=== PATIENT | male | born 1970 | race Caucasian/White ===

== ENCOUNTER 2018-06-26 06:38 | Day surgery (SDC) | payer MEDICAID ==
[2018-06-24 11:37] VITALS: BMI 24.4
[~2018-06-26 06:38] MED LIST: HYDROmorphone 0.5 MG/0.5 ML SYRINGE IVP PRN; LACTATED RINGERS 1,000 ML IV SCH; LIDOCAINE 1% 20 ML VIAL (10MG/ML) FOR IV START INTRADERMA PRN; Pre Op ABX Message 1 EACH MISC MISCELLANE ONE
[2018-06-26] MEDS ORDERED: LACTATED RINGERS 1,000 ML IV ONE (07:03)
[2018-06-26 07:10] VITALS: TEMP 98.1
[2018-06-26] MEDS ORDERED: LIDOCAINE 1% INJ 10MG/ML (20 ML MDV) ONE (07:33)
[2018-06-26] MEDS ORDERED: fentaNYL (PF) 50 MCG/ML 2 ML AMP ONE (07:33)
[2018-06-26] MEDS ORDERED: PROPOFOL 10 MG/ML 20 ML VIAL IV ONE (07:33)
[2018-06-26] MEDS ORDERED: MIDAZOLAM 2 MG/2 ML VIAL ONE (07:33)
--- NOTE | 2018-06-26 08:01 | P.OP ---
Date of Procedure: 06/26/18 Preoperative Diagnosis: Screening colonoscopy Postoperative Diagnosis: No abnormalities Procedure(s) Performed: Colonoscopy Anesthesia: MAC Surgeon: Hardeep Rizvi Condition: stable Disposition: PACU Description of Procedure: Patient is brought to the Endo suite placed in left lateral decubitus position underwent sedation per department of anesthesia. Rectal exam performed no abnormalities noted scope was passed from the rectum to the cecum with the slowly withdrawn make sure to visualize all prado of the colon on the way out no abnormalities were noted scope was retroflexed in the rectum no abnormalities are noted patient artery procedure well no apparent complications we'll plan for repeat colonoscopy in 10 years
[2018-06-26 08:16] VITALS: RESP 16
[2018-06-26 08:37] VITALS: BP 118/71; PULSE 53
== END 2018-06-26 08:52 | disposition home or self-care (01) ==
LOC: ORWHC2ENDO 06:38
PROVIDERS: ATTEND Student in an Organized Health Care Education/Training Program
DX: Z12.11 Encounter for screening for malignant neoplasm of colon (principal); Z87.19 Personal history of other diseases of the digestive system; G43.909 Migraine, unspecified, not intractable, without status migrainosus; Z91.09 Other allergy status, other than to drugs and biological substances
CPT/HCPCS: J2250; J2001; J3010; J2704; G0121

== ENCOUNTER → 2019-09-11 | Outpatient (CLI) | payer MEDICAID ==
--- NOTE | 2019-09-11 10:00 | XR ---
Abdomen HISTORY: Pain Frontal view of the abdomen on 2 images, no comparisons There is a calcification over the lower pole the left kidney measuring only 3 mm in greatest dimensio n. There is a sclerotic density seen over the right sacrum measuring 12 mm. Abnormal vascular calcifi cations are noted within the pelvis. Sclerotic densities present over the right iliac wing measuring 2 cm. Lung bases are clear. There is no evident pneumoperitoneum or bowel obstruction. IMPRESSION: Left nephrolithiasis. Indeterminate densities over the right sacrum, ilium.
--- NOTE | 2019-09-11 10:01 | US ---
EXAMINATION TYPE: US abdomen complete DATE OF EXAM: 09/11/2019 COMPARISON: NONE CLINICAL HISTORY: R10.84 Abd pain. EXAM MEASUREMENTS: Liver Length: 12.8 cm Gallbladder Wall: 0.6 cm CBD: obscured by overlying bowel gas Spleen: 10.9 cm Right Kidney: 10.5 x 5.5 x 5.0 cm Left Kidney: 11.0 x 5.1 x 5.0 cm Severe overlying bowel with tight intercostal spaces. Technically difficult very limited study. Pancreas: Obscured by bowel gas Liver: portions visualized wnl, very limited visualization Gallbladder: limited views, wall appears thickened Evidence for sonographic Dickerson's sign: no CBD: Obscured by overlying bowel gas Spleen: Obscured by overlying bowel gas Right Kidney: wnl Left Kidney: wnl Upper IVC: wnl Abd Aorta: wnl IMPRESSION: 1. Limited due to bowel gas. 2. No ultrasound abnormalities within the abdomen as visualized.
== END | disposition home or self-care (01) ==
LOC: RADUSWWP 08:15
PROVIDERS: ATTEND Family Medicine
DX: N20.0 Calculus of kidney (principal); R10.84 Generalized abdominal pain
CPT/HCPCS: 74018; 76700

== ENCOUNTER 2022-10-26 00:55 | Emergency (ER) | payer BC, MEDICAID ==
[2022-10-26 01:00] VITALS: TEMP 97.5
[2022-10-26] MEDS ORDERED: ONDANSETRON 4 MG/2 ML VIAL IVP STA (01:03)
[2022-10-26] MEDS ORDERED: SODIUM CHLORIDE 0.9% 1,000 ML IV STA (01:03)
[2022-10-26] MEDS ORDERED: KETOROLAC 15 MG/ML 1 ML VIAL IVP STA ×2 (01:03→02:52)
--- NOTE | 2022-10-26 01:08 | ED ---
Abdominal Pain HPI - General Chief Complaint: Abdominal Pain Stated Complaint: ABD PAIN Time Seen by Provider: 10/26/22 01:00 Source: patient, family, RN notes reviewed Mode of arrival: ambulatory Limitations: no limitations - History of Present Illness Initial Comments: This is a 52-year-old male who presents to the emergency department for abdominal pain. This started at approximately 10 PM last night and is located in the right lower quadrant and the right lower back. Since approximately 10 PM last night, the pain has been constant. The pain has not changed positions either. Also reports associated nausea and vomiting. He feels like he may have some constipation. Denies any blood in his urine or changes in urinary habits, however he has noticed a foul odor to his urine. Denies any history of similar symptoms in the past and he also denies any history of kidney stones. Denies any fevers, chills, sore throat, cough, dyspnea, chest pain, palpitations, diarrhea, or headaches. MD Complaint: abdominal pain, flank pain Location: RLQ Radiation: back Consistency: constant Associated Symptoms: nausea, vomiting - Related Data Previous Rx's Medication Instructions Recorded HYDROcodone/APAP 5-325MG [[place] 1 tab PO Q6HR PRN 3 Days #12 tab 10/26/22 5-325] Ketorolac [Toradol] 10 mg PO Q6HR PRN #12 tab 10/26/22 Ondansetron Odt [Zofran Odt] 4 mg PO Q8HR PRN #15 tab 10/26/22 cefUROXime axetiL [Ceftin] 500 mg PO BID 7 Days #14 tab 10/26/22 Allergies Allergy/AdvReac Type Severity Reaction Status Date / Time No Known Allergies Allergy Verified 10/26/22 00:56 Review of Systems ROS Statement: Those systems with pertinent positive or pertinent negative responses have been documented in the HPI. ROS Other: All systems not noted in ROS Statement are negative. Past Medical History Past Medical History: No Reported History History of Any Multi-Drug Resistant Organisms: None Reported Past Surgical History: No Surgical Hx Reported Past Anesthesia/Blood Transfusion Reactions: No Reported Reaction Additional Past Anesthesia/Blood Transfusion Reaction / Comment(s): NO PRIOR SX HX Past Psychological History: No Psychological Hx Reported Smoking Status: Never smoker Past Alcohol Use History: Occasional Past Drug Use History: None Reported - Past Family History Mother History Unknown: Yes Additional Family Medical History / Comment(s): PT ADOPTED-FAMILY HX UNKN OWN General Exam Limitations: no limitations General appearance: alert, in distress Head exam: Present: atraumatic, normocephalic, normal inspection Respiratory exam: Present: normal lung sounds bilaterally. Absent: respiratory distress, wheezes, rales, rhonchi, stridor Cardiovascular Exam: Present: regular rate, normal rhythm, normal heart sounds. Absent: systolic murmur, diastolic murmur, rubs, gallop, clicks GI/Abdominal exam: Present: soft, tenderness (RLQ), normal bowel sounds. Absent: distended, guarding, rebound, rigid Back exam: Present: CVA tenderness (R). Absent: CVA tenderness (L) Neurological exam: Present: alert, oriented X3, CN II-XII intact Psychiatric exam: Present: normal affect, normal mood Skin exam: Present: warm, dry, intact, normal color. Absent: rash Course Vital Signs 10/26/22 10/26/22 00:57 03:01 Temperature 97.5 F L Pulse Rate 65 78 Respiratory 18 15 Rate Blood Pressure 129/66 137/68 O2 Sat by Pulse 98 100 Oximetry Medical Decision Making - Medical Decision Making This is a 52-year-old male who presents to the emergency department for abdominal pain. Was pt. sent in by a medical professional or institution? @ -No Did you speak to anyone other than the patient for history? @ -No Did you review nursing and triage notes? @ -Yes, and I agree, it is accurate with regards to the patient's symptoms. Were old charts reviewed? @ -No Differential Diagnosis? @ -Differential Abdominal Pain Men: Appendicitis, cholecystitis, diverticulosis, ischemic bowel, pancreatitis, hepatitis, UTI, ureteral calculus, gastroenteritis, AAA, incarcerated hernia, bowel obstruction, constipation, inflammatory bowel, hepatitis, peptic ulcer disease, splenic infarction, perforated viscus, testicular torsion, this is not meant to be an all-inclusive list CT interpreted by me (1pt min.)? @ -CT scan of the abdomen and pelvis obtained. My interpretation identifies a right renal calculus with associated hydronephrosis. What testing was considered but not performed? (CT, X-rays, U/S, labs)? Why? @ -None What meds were considered but not given? Why? @ -None Did you discuss the management of the patient with other professionals? @ -No Did you reconcile home meds? @ -No Was smoking cessation discussed for >3mins.? @ -No Was critical care preformed (if so, how long)? @ -No Were there social determinants of health that impacted care today? How? (Terrance elessness, low income, unemployed, alcoholism, drug addiction, transportation, low edu. Level, literacy, decrease access to med. care, nursing home, rehab)? @ -No Was there de-escalation of care discussed even if they declined? (Discuss DNR or withdrawal of care, Hospice)? @ -No What co-morbidities impacted this encounter? (DM, HTN, Smoking, COPD, CAD, Cancer, CVA, Hep., AIDS, mental health diagnosis, sleep apnea, morbid obesity)? @ -None Was patient admitted / discharged? @ -Discharged. Lab work obtained revealing leukocytosis and elevated lactic acid. CT scan of the abdomen and pelvis identifies a right ureteral calculus. Symptoms were well controlled with IV fluids, Zofran, and Toradol. He was unable to provide a urine sample prior to discharge. His lab work reveals leukocytosis which may be reactive, however because he was unable to provide a urine sample and he notes a foul odor to his urine, will treat him with a course of antibiotics. Patient states that because his symptoms were well controlled he feels comfortable managing this at home and requests discharge home. He was given a dose of ceftriaxone in the emergency department and a prescription for Ceftin was provided. He was also given prescriptions for [place], Toradol, and Zofran with dosing instructions reviewed. He is instructed to avoid tifp-jai-bubbogn anti-inflammatories such as ibuprofen with the Toradol and to take the [place] sparingly when the pain is the most severe, with the understanding that it may make him drowsy. Information for urology follow up provided, he is instructed to contact them in the morning for a follow up appointment. Undiagnosed new problem with uncertain prognosis? @ -None Drug Therapy requiring intensive monitoring for toxicity (Heparin, Nitro, Insulin, Cardizem)? @ -None Were any procedures done? @ -None Diagnosis/symptom? @ -Right ureteral calculus Acute, or Chronic, or Acute on Chronic? @ -Acute Uncomplicated (without systemic symptoms) or Complicated (systemic symptoms)? @ -Complicated Side effects of treatment? @ -None Exacerbation, Progression, or Severe Exacerbation] @ -Not applicable Poses a threat to life or bodily function? @ -Yes, the pain is making it difficult to function. Return precautions reviewed in depth, the patient is instructed to return to the emergency department with any new, worsening, or concerning symptoms. Patient verbalized understanding. This case was discussed in detail with the attending ED physician, Dr. Ariza. Presentation, findings, and treatment plan discussed in detail as well. - Lab Data Result diagrams: 10/26/22 01:18 10/26/22:18 Lab Results 10/26/22 10/26/22 10/26/22 Range/Units 01:18 01:18 01:21 WBC 15.6 H (3.8-10.6) k/uL RBC 4.75 (4.30-5.90) m/uL Hgb 14.7 (13.0-17.5) gm/dL Hct 43.6 (39.0-53.0) % MCV 91.7 (80.0-100.0) fL MCH 30.9 (25.0-35.0) pg MCHC 33.7 (31.0-37.0) g/dL RDW 11.9 (11.5-15.5) % Plt Count 207 (150-450) k/uL MPV 7.6 Neutrophils % 81 % Lymphocytes % 13 % Monocytes % 4 % Eosinophils % 0 % Basophils % 0 % Neutrophils # 12.6 H (1.3-7.7) k/uL Lymphocytes # 2.0 (1.0-4.8) k/uL Monocytes # 0.7 (0-1.0) k/uL Eosinophils # 0.0 (0-0.7) k/uL Basophils # 0.1 (0-0.2) k/uL Sodium 138 (137-145) mmol/L Potassium 3.7 (3.5-5.1) mmol/L Chloride 106 (98-107) mmol/L Carbon Dioxide 23 (22-30) mmol/L Anion Gap 9 mmol/L BUN 20 (9-20) mg/dL Creatinine 1.10 (0.66-1.25) mg/dL Est GFR (CKD-EPI)AfAm 88 (>60 ml/min/1.73 sqM) Est GFR (CKD-EPI)NonAf 76 (>60 ml/min/1.73 sqM) Glucose 196 H (74-99) mg/dL Plasma Lactic Acid Delio 3.8 H* (0.7-2.0) mmol/L Calcium 9.0 (8.4-10.2) mg/dL Total Bilirubin 0.6 (0.2-1.3) mg/dL AST 29 (17-59) U/L ALT 29 (4-49) U/L Alkaline Phosphatase 98 (38-126) U/L Total Protein 6.9 (6.3-8.2) g/dL Albumin 4.3 (3.5-5.0) g/dL Amylase 75 (30-110) U/L Lipase 101 (23-300) U/L - Radiology Data Radiology results: report reviewed, image reviewed Disposition Clinical Impression: Right ureteral calculus, Hydronephrosis Disposition: HOME SELF-CARE Instructions (If sedation given, give patient instructions): Kidney Stones (ED), Renal Colic (ED), Hydronephrosis (ED), Ureteral Stones (ED) Additional Instructions: Return to the emergency department with any new, worsening, or concerning symptoms. You can take the Toradol with Tylenol for pain relief. If you choose to take the Toradol, do not take rhdx-cgm-dxyrset anti-inflammatories such as ibuprofen with it. Take the [place] sparingly when your pain is the most severe and be aware that it may make you drowsy. You can take the Zofran up to every 8 hours as needed for nausea and vomiting and take the antibiotic as prescribed for 7 days. Contact urology as listed below for a follow-up appointment. Follow up with your primary care provider in 1-2 days. Prescriptions: cefUROXime axetiL [Ceftin] 500 mg PO BID 7 Days #14 tab HYDROcodone/APAP 5-325MG [[place] 5-325] 1 tab PO Q6HR PRN 3 Days #12 tab PRN Reason: Pain Ketorolac [Toradol] 10 mg PO Q6HR PRN #12 tab PRN Reason: Pain Ondansetron Odt [Zofran Odt] 4 mg PO Q8HR PRN #15 tab PRN Reason: Nausea And Vomiting Is patient prescribed a controlled substance at d/c from ED?: Yes When asked, does pt state using other controlled substances?: No If prescribed controlled substance>3 days was MAPS reviewed?: Prescribed <3 Days Referrals: Ulises Doll MD [Primary Care Provider] - 1-2 days Edmond Esparza MD [STAFF PHYSICIAN] - 1-2 days
[2022-10-26 01:39] LABS: Albumin 4.3 g/dL (3.5-5.0); Potassium 3.7 mmol/L (3.5-5.1); Total Bilirubin 0.6 mg/dL (0.2-1.3); Total Protein 6.9 g/dL (6.3-8.2)
[2022-10-26 02:11] LABS: Basophils # (A) 0.1 k/uL (0-0.2); Basophils % (A) 0 %; Eosinophils % (A) 0 %; HCT 43.6 % (39.0-53.0); HGB 14.7 gm/dL (13.0-17.5); Lymphocytes % (A) 13 %; MCH 30.9 pg (25.0-35.0); MCHC 33.7 g/dL (31.0-37.0); MCV 91.7 fL (80.0-100.0); Mean Platelet Volume 7.6; Monocytes # (A) 0.7 k/uL (0-1.0); Monocytes % (A) 4 %; Neutrophils # (A) 12.6 k/uL (1.3-7.7); Neutrophils % (A) 81 %; Platelet Count 207 k/uL (150-450); RBC 4.75 m/uL (4.30-5.90); RDW 11.9 % (11.5-15.5); WBC 15.6 k/uL (3.8-10.6)
--- NOTE | 2022-10-26 02:11 | CT ---
EXAMINATION TYPE: CT abdomen pelvis w con DATE OF EXAM: 10/26/2022 COMPARISON: None HISTORY: Right sided abd pain and flank pain CT DLP: 997.7 mGycm Automated exposure control for dose reduction was used. CONTRAST: Performed with IV Contrast, patient injected with 100 mL of Isovue 300. Images obtained from the diaphragm to the floor the pelvis with the IV contrast. Lung bases are clear of infiltrate. No pleural effusion. Heart size is normal. No pericardial effusio n. There is minimal subsegmental atelectasis at the lung bases. Liver spleen and stomach pancreas and gallbladder appear normal. The bile duct are not dilated. There is no adrenal mass. Kidneys show satisfactory contrast opacification. There is delayed right si ded pyelogram. There is mild proximal right-sided periureteral edema. There is obstructing 3 mm calcu abraham at the distal right ureter close to the urinary bladder. Bladder distends smoothly. No inguinal h ernia. No free fluid in the pelvis. No pelvic mass. There is no mesenteric edema. No ascites or free air. No sign of a bowel obstruction. Appendix is pos terior and appears normal. There are some minimal linear calcifications along the dorsum of the proxi mal penis that could be phleboliths. There is L5 spondylolysis with a minimal first-degree L5-S1 spondylolisthesis. No lumbar compression fracture. The bony pelvis is intact. The hip joints are intact. IMPRESSION: Obstructing calculus in the distal right ureter with right-sided hydronephrosis and hydroureter. Normal appendix.
[2022-10-26] MEDS ORDERED: cefTRIAXone IN SWFI 1,000 MG/10 ML SYRINGE IVP STA (02:38)
[2022-10-26] MEDS ORDERED: ONDANSETRON 4 MG ODT STARTER PACK 2 TAB BTL PO STA (02:38)
[2022-10-26] MEDS ORDERED: ACET/COD 300 MG/30 MG STARTER PACK 6 TAB BTL PO STA (02:38)
[2022-10-26 03:02] VITALS: BP 137/68; PULSE 78; RESP 15
== END 2022-10-26 03:02 | disposition home or self-care (01) ==
LOC: EC 00:55
DX: N13.2 Hydronephrosis with renal and ureteral calculous obstruction (principal)
CPT/HCPCS: 36415; 80053; 82150; 83605; 83690; 85025; 74177; 99284; 96374; 96375; 96376; 96361; J2405; J0696; J1885; S0119; Q9967